=== PATIENT | male | born 1995 | race Two or more races ===

== ENCOUNTER 2022-09-14 05:48 | Emergency (ER) | payer OTHER ==
[~2022-09-14] VITALS: Ht 172.7 cm; Wt 102.0 kg
[2022-09-14 09:19] VITALS: BP 129/72
[2022-09-14] MEDS ORDERED: BACL20TA PO (10:34)
[2022-09-14] MEDS ORDERED: IBUP800T26 PO (10:34)
== END 2022-09-14 11:01 | disposition home or self-care (01) ==
LOC: EDBD 05:48 → ER 05:48
DX: M79.605 Pain in left leg (principal); M25.552 Pain in left hip; Z88.0 Allergy status to penicillin; Z88.2 Allergy status to sulfonamides; V49.69XA Unspecified car occupant injured in collision with other motor vehicles in traffic accident, initial encounter; Y93.89 Activity, other specified; Y92.89 Other specified places as the place of occurrence of the external cause; Y99.8 Other external cause status
CPT/HCPCS: 73502; 73562; 73610